=== PATIENT | female | born 1985 | race Caucasian/White ===

== ENCOUNTER → 2016-04-23 | Outpatient (CLI) | payer MEDICAID ==
--- NOTE | 2016-04-23 14:41 | DX ---
Cervical Spine, Five Views History: Left radicular pain, heavy object fall on left shoulder in 2012, M [age] Findings: The odontoid view is suboptimal. Alignment is anatomic, but absolutely straight on the late ral view and associated with a mild scoliosis concave to the left on the AP view. Disk spaces are wel l maintained. There is no prevertebral soft tissue swelling. Facets are normally aligned. Neural fora men do not demonstrate bony encroachment. There are multiple bilateral low cervical surgical clips. N o fracture deformity is identified. Incidentally noted is what appears to be an expanded sella turcic a. The dorsum sella is severely thinned. Impression: 1. No source for radiculopathy identified. If symptoms persist consider cervical MRI. 2. Expanded sella turcica. If there is no known history of pituitary adenoma, then recommend obtainin g serum prolactin level and MRI of the pituitary (without and with contrast) for further evaluation. Results called to Aisha Braxton at 2:37 pm.
== END ==
LOC: BRMIMAGING 13:28
PROVIDERS: ATTEND Registered Nurse
DX: M54.12 Radiculopathy, cervical region (principal)
CPT/HCPCS: 72050-PO